=== PATIENT | male | born 1960 | race Caucasian/White ===

== ENCOUNTER 2023-01-10 16:50 | Emergency (ER) | payer BC ==
[2023-01-10] MEDS ORDERED: Lidocaine 1% 10 ML MDV INJECT ONE (17:25)
== END 2023-01-10 18:30 | disposition home or self-care (01) ==
LOC: JD.ED 16:50
DX: S61.214A Laceration without foreign body of right ring finger without damage to nail, initial encounter (principal); F17.210 Nicotine dependence, cigarettes, uncomplicated; I10 Essential (primary) hypertension; Z86.16 Personal history of COVID-19; Z79.899 Other long term (current) drug therapy; Z88.0 Allergy status to penicillin; W26.9XXA Contact with unspecified sharp object(s), initial encounter
CPT/HCPCS: 12001; 99282; 99283; J3490